=== PATIENT | male | born 2000 | race Caucasian/White ===

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

== ENCOUNTER 2024-08-27 12:04 | Emergency (ER) | payer BC, SELFPAY ==
[2024-08-27 12:05] VITALS: BP 142/93; PULSE 99; RESP 16; TEMP 36.8; O2SAT 100; BMI 27.3
[2024-08-27 12:13] VITALS: BP 142/99; PULSE 89; O2SAT 97
--- NOTE | 2024-08-27 12:16 | PC.NURSE ---
DR BARAHONA AT BEDSIDE
[2024-08-27 12:27] VITALS: BP 133/91; O2SAT 99
--- NOTE | 2024-08-27 12:35 | XR_ITS ---
PROCEDURE INFORMATION: Exam: XR Left Hand Exam date and time: 08/27/2024 12:41 PM Age: 23 years old Clinical indication: Injury or trauma; Other: Cut left thumb/hand with pocket knife; Other: Pain; Additional info: Thumb injury, hand laceration TECHNIQUE: Imaging protocol: Radiologic exam of the left hand. Views: 3 or more views. COMPARISON: CR ELBOWLMLT XR elbow LT 2V 09/22/2017 9:26 AM FINDINGS: Bones/joints: Normal. Soft tissues: Normal. IMPRESSION: No acute findings.
--- NOTE | 2024-08-27 12:37 | ED_ITS ---
Discharge Plan Disposition Patient Disposition: Home, Self-Care Prescriptions Prescriptions: No Action No Known Home Medications Referrals Follow up/Referrals: Zachery Millan MD [Primary Care Provider] - See instructions Activity Restrictions/Add. Instructions Additional Instructions/Restrictions: Please have your sutures removed in 7 to 10 days. Return with any spreading redness or pus coming from the wounds or high fevers or other concerns. Clinical Impressions Clinical Impression: Hand laceration, Contusion of left thumb Instructions Patient Instructions: DI for Laceration Repair Print Language Print Language: [place] Discharge ED Provider: Leora Luna General Adult HPI General Chief complaint: Wound/Laceration Stated complaint: AO-1200- Laceration to L palm Time Seen by Provider: 08/27/24 12:15 Mode of Arrival: Ambulatory Description of Symptoms (Recalled from ER Triage Doc. by RN): Patient presents ambulatory to triage with father. States he sustained a laceration from a pocket knife on his left palm at the base of his thumb. Presents with a bandage in place in triage. Dried blood noted to the fingers. Bleeding controlled at this time. Bandage left in place. Assessment delayed until provider assessment to decrease risk of bleeding. History of Present Illness HPI narrative: 23-year-old male presents today with an injury to his left hand. Lacerated the volar aspect of his left hand while working with a pocket knife. Denies any inability to move his finger thumb has no sensation loss. Also had another injury earlier today where he hit his thumb with a hammer. Unknown tetanus vaccination status. Related Data Home Medications ?Medication ?Instructions ?Recorded ?Confirmed No Known Home Medications 08/06/18 08/06/18 Allergies Allergy/AdvReac Type Severity Reaction Status Date / Time No Known Allergies Allergy Verified 08/06/18 22:16 [facility] Disclaimer: The information contained in this section may have been updated after the patient was seen, as this information can be updated by other users. Social History Smoking Status: Never smoker alcohol intake: never current occupational status: student Travel in the last 8 weeks: None household members: family ROS Obtained: Yes All systems reviewed & no additional complaints except as documented Physical Exam General General appearance: alert and in no apparent distress Respiratory Respiratory exam: Present normal lung sounds bilaterally Cardiovascular Cardiovascular exam: Present regular rate Extremities Exam Extremities exam: Present other (On the volar aspect of the left hand there is a 2 cm laceration that is actively hemorrhaging/arterial hemorrhaging he is neurovascular tact has FDS and FDP tendon function intact good capillary refill thumb is swollen but no open wounds) Neurological Exam Neurological exam: Present alert Medical Decision Making Medical Records Screening: Per USPSTF and CDC recommendations, given the prevalence of disease in our region, it is our hospital?s policy to screen for HIV and viral Hepatitis for all patients aged 18 and over and those with ongoing risk factors. [place] Inquiry Pt receiving controlled substance: No Vital Signs: 08/27/24 12:05 08/27/24 12:13 08/27/24 12:27 Temperature 98.3 F Temperature Source Oral Pulse Rate 89 Pulse Rate [Radial] 99 H Respiratory Rate 16 Blood Pressure 142/99 H 133/91 H Blood Pressure [R Arm] 142/93 H Blood Pressure Mean [R Arm] 109 Blood Pressure Source [R Arm] Automatic Cuff 02 Sat by Pulse Oximetry 100 97 99 Oxygen Delivery Method Room Air Room Air Room Air Orders (Tests/Meds): ED MEDICATIONS Discontinued Medications Generic Name Dose Route Start Last Admin Trade Name Freq PRN Reason Stop Dose Admin Tetanus/Reduced Diphtheria/Acell Pertussis 0.5 ml 08/27/24 12:35 08/27/24 12:46 Tet/Diphth/Pert-Adult 0.5ml Syringe IM 08/27/24 12:36 0.5 ml .ONCE ONE Administration ORDERS Category Date Time Status Hand XR left minimum 3 views [XR hand LT min 3V] Stat Exams 08/27/24 12:35 Taken Medical Decision Narrative: 23-year-old with above history and physical he was numbed and irrigated I was able to see the base of the field without any foreign bodies he has tendon function is intact and sensory function is intact he did strike a superficial arterial which was necessary to get bleeding control of quickly. Laceration was repaired with a [id number] stitch and a few other simple interrupted stitches. He has been advised to take his sutures out in 7 to 10 days. Also will get a plain film to rule out any type of fracture particular of his thumb. There was a separate injury. He is also been advised to keep topical antibiotic ointment on this over the next week and return with any spreading redness pus from the wound or other concerns. Tetanus was also updated. X-ray performed which I personally interpreted which shows no evidence of any fracture or dislocation. Patient was discharged in stable condition return pr ecautions emphasized. Procedures Laceration Laceration 1: Site: hand Side (If applicable): left Size (cm): 2 Description: linear and other (Arterial hemorrhaging) Depth: simple, single layer and involves subcutaneous layer Local Anesthetic: lidocaine 1% and with epi Amount of anesthesia used (mL): 5 Pre-repair: wound explored and irrigated extensively Skin layer closed with: nylon Size (cm): 4-0 (2 sutures were 4 -0 but 1 large [id number] suture using2-0 nylon obtained hemorrhage control followed by the 4-0 sutures for more cosmetic repair) Number of sutures: 4 Technique: simple, interrupted and other ([id number] as above) Critical Care Critical Care Time Critical Care Time: No
--- NOTE | 2024-08-27 12:41 | PC.NURSE ---
XR AT BEDSIDE
[2024-08-27] MEDS: TET/DIPHTH/PERT-ADULT 0.5ML SYRINGE 0.5 ML IM (12:46)
[2024-08-27 13:06] VITALS: BP 133/91; PULSE 89; RESP 16; TEMP 36.8; O2SAT 99
== END 2024-08-27 13:07 | disposition home or self-care (01) ==
PROVIDERS: Emergency Provider Student in an Organized Health Care Education/Training Program; PCP Internal Medicine Adolescent Medicine
DX: S61.412A Laceration without foreign body of left hand, initial encounter (principal); S60.012A Contusion of left thumb without damage to nail, initial encounter; M79.642 Pain in left hand; Z23 Encounter for immunization; W26.0XXA Contact with knife, initial encounter; W22.8XXA Striking against or struck by other objects, initial encounter; Y93.89 Activity, other specified; Y92.9 Unspecified place or not applicable
CPT/HCPCS: 12001; 73130; 90471; 90715; 99283